=== PATIENT | female | born 1975 | race Caucasian/White ===

== ENCOUNTER 2019-11-26 01:30 | Emergency (ER) | payer BC ==
[~2019-11-26] VITALS: Ht 160 cm; Wt 117.9 kg
[~2019-11-26 01:30] MED LIST: ACETAMINOPHEN325 M1; AFRIN15 ML; AZITHROMYCIN500 MG; MUCINEX1200 MG; NORCO 5-325 TA1 EACH PO; PRENATAL FORMU1 EAC1 PO; PROAIR HFA8.5 GM; PROMETHAZINE-COD5 ML PO
[2019-11-26] MEDS ORDERED: PRILOSEC OTC20 MG PO (02:02)
[2019-11-26] MEDS ORDERED: FLUOXETINE HCL10 MG PO (02:02)
[2019-11-27] MEDS ORDERED: ONDANSETRON ODT8 MG PO (09:07)
[2019-11-27] MEDS ORDERED: FLUOXETINE HCL20 MG PO (09:28)
== END 2019-11-26 03:42 | disposition home or self-care (01) ==
LOC: ED 01:30
DX: R10.11 Right upper quadrant pain (principal); F41.9 Anxiety disorder, unspecified; K21.9 Gastro-esophageal reflux disease without esophagitis; F17.200 Nicotine dependence, unspecified, uncomplicated; Z88.8 Allergy status to other drugs, medicaments and biological substances; Z88.0 Allergy status to penicillin; Z88.6 Allergy status to analgesic agent; Z79.899 Other long term (current) drug therapy
CPT/HCPCS: 80053; 81001; 83690; 84703; 85025; 96361; 96374; 96375; 99284-25; J2405; J3010; J7030

== ENCOUNTER 2019-11-26 11:45 | Inpatient (IN) | payer BC, OTHER ==
[~2019-11-26] VITALS: Ht 160 cm; Wt 117.9 kg
[~2019-11-26 11:45] MED LIST changes: +FLUOXETINE HCL10 MG PO; +PRILOSEC OTC20 MG PO
--- NOTE | 2019-11-26 19:03 | NUR ---
1730: BOTH NARES SWABBED FOR COVID-19 SAMPLE PLACED IN THE INCYTE FRIDGE.
--- NOTE | 2019-11-26 19:35 | NUR ---
SHIFT REPORT FROM NURSE DELGADO. PT IN ROOM AMBULATING. NO NEEDS AT THIS TIME.
--- NOTE | 2019-11-26 21:39 | NUR ---
pt UP TO NURSES STATION REQUESTING INFORMATION ON TIME FOR SURGERY, INFORMED THAT WE WILL NOTIFY HER SOON WE KNOW A TIME. C/O PAIN IN ABDOMEN, 08/14. IN pt ROOM WITH MINH ALBERTS FOR MEDICATION ADMINISTRATION. VSS. WARM BLANKET PROVIDED. CALL LIGHT IN REACH.
--- NOTE | 2019-11-26 22:50 | NUR ---
PT WALKING IN GALAVIZ WITH IV POLE. IV FLOWING PER PLAN. PT IS HOLDING R ABDOMEN. REPORTS PAIN IS WORSE WITH MOVEMENT BUT TOLERABLE.
--- NOTE | 2019-11-27 00:25 | NUR ---
IN ROOM TO ADMINISTER ANCEF IV. PT IS SITTING AT EDGE OF BED SEWING. SCDS SET UP, WATER/TEA REMOVED FROM ROOM FOR NPO ORDERS. NO FURTHER NEEDS AT THIS TIME.
--- NOTE | 2019-11-27 01:48 | NUR ---
FLUID INTAKE TAKEN IN BEFORE 0001.
--- NOTE | 2019-11-27 02:00 | NUR ---
PT REPORTS PAIN 4/10 IN RIGHT SIDE. PRN MORPHINE AND ZOFRAN ADMINISTERED IN PREPARATION TO SLEEP. SCDS ON. NO FURTHER NEEDS AT THIS TIME
--- NOTE | 2019-11-27 05:15 | NUR ---
PT IN HALLWAY AMBULATING. WOULD LIKE TO SHOWER WITH DANETTE IN PREPARATION FOR SURGERY. PT SET UP FOR SHOWER. PRN TORADOL PROVIDED PRIOR TO SHOWER. ASSESSMENT COMPLETE. NO FURTHER NEEDS AT THIS TIME
--- NOTE | 2019-11-27 06:50 | NUR ---
pt BACK IN BED AFTER HIBICLENS SHOWER. IV FLUSHED WNL, IVF INFUSING ORDERED. pt DENIES PAIN. PERSONAL SUPPLIES AND CALL LIGHT IN REACH. NO REQUESTS AT THIS TIME.
[2019-11-27] MEDS ORDERED: ONDANSETRON ODT8 MG PO (09:07)
--- NOTE | 2019-11-27 09:10 | NUR ---
NEW IV 20G PLACED THIS AM, PT HAS BEEN UP TO THE BATHROOM VOIDED AND IS CURRENTLY SITTING AT THE SIDE OF THE BED. NO C/O'S AT THIS TIME.
[2019-11-27] MEDS ORDERED: FLUOXETINE HCL20 MG PO (09:28)
--- NOTE | 2019-11-27 09:29 | NUR ---
MED REC COMPLETE
--- NOTE | 2019-11-27 09:59 | NUR ---
PT AMBULATED IN THE GALAVIZ, TALKED WITH DR PAZ NO NEW ORDERS.
--- NOTE | 2019-11-27 10:26 | NUR ---
SPOKE WITH PATIENT IN ROOM. SHE IS PLANNING ON OR TODAY. SHE HAS NO BARRIERS KNOWN TO DISCHARGE HOME. SUPPORTIVE FAMILY. IN ROOM. CM WILL FOLLOW NEEDED.
--- NOTE | 2019-11-27 11:44 | NUR ---
CHECKED ON PT AND SHE APPEARS TO BE SLEEPING AT THIS TIME.
--- NOTE | 2019-11-27 12:26 | NUR ---
PT ALERT, ORIENTED AND SUPPORTED BY ALVERTO AT . ALL PTS' QUESTIONS THAT WERE ASKED WERE ANSWERED. PT KNOWS SHE IS HEADED TO OR FOR ROBERT MORGAN LATER TODAY. SHE ALSO PLANS ON BEING DC'D TODAY WELL. PT REQUESTED PRAYER, WILL FOLLOW NEEDED
--- NOTE | 2019-11-27 13:03 | NUR ---
PT MEDICATED WITH 8MG IVP ZOFRAN FOR NAUSEA AT THIS TIME.
--- NOTE | 2019-11-27 15:11 | NUR ---
1430: pt up to bathroom ready to go to or and then back to bed ancef and tordal given.
--- NOTE | 2019-11-27 17:36 | NUR ---
11/27/19 1736 Annamaria Estrada 1726 PATIENT ARRIVES TO PACU AWAKE OFF/ON, BUT VERY DROWSY. RESP EVEN AND UNLABORED, MASK AT 6 LITERS. 1730 PATIENT AWAKE BUT DROWSY. ANSWERS QUESTIONS APPROPRIATELY. RESP EVEN AND UNLABORED, MASK OFF. ROOM AIR SATS >92%. PATIENT COUGHS AND DEEP BREATHES APPROPRIATELY. DENIES PAIN OR NAUSEA. 1735 PATIENT ONLY COMPLAINS OF TONGUE PAIN, STATES "I FEEL LIKE I BIT MY TONGUE."
--- NOTE | 2019-11-27 18:06 | NUR ---
PT RETURNED FOR PACU DRINKING WATER AND WANTING FOOD AND TEA. PT SITTING AT THE EDGE OF THE BED AT18:06. PT HAS REACTIVE AIRWAY DISEASE AND AT TIMES HAS A HARD TIME TO CLEAR HER THROAT.
--- NOTE | 2019-11-27 18:41 | NUR ---
PT WORKING ON DINNER
--- NOTE | 2019-11-27 18:45 | NUR ---
TALKED WITH RT REGARDING NEBS VERSE INHALER TXS. RT WILL TALK WITH DR PAZ DUE TO COVID TEST IS NOT BACK AT THIS TIME.
--- NOTE | 2019-11-27 18:51 | NUR ---
VS Q 1 X2 COMPLETED SO FAR THIS SHIFT. PT EATTING DINNER AND NAUSEA FEELING BETTER AT THIS TIME. REMAINS AT THE BEDSIDE.
--- NOTE | 2019-11-27 19:15 | NUR ---
SHIFT REPORT RECEIVED FROM CAMILLEARDEBBIE FLORES AT BEDSIDE. PT AWAKE AND RESTING IN BED, AMBULATING IN ROOM AT TIMES. ALSO IN ROOM. LAP SITES X3 NOTED, SITE NEAR UMBILLICUS, SOMEWHAT LEAKY, 2X2 GAUZE PLACED. PT IN GOOD SPIRITS, DENIES NEEDS OR CONCERNS. CALL LIGHT IN REACH.
--- NOTE | 2019-11-27 20:20 | NUR ---
POST OP VSS, PT REPORTS 3/10 PAIN. PRN TYLENO, GIVEN PER PT REQUEST. LAP SITES X3 NOTED, MIAN DRAIN DRESSING INTACT, SOME SHADOWING. 30 MLS SEROSANGUINEOUS OUTPUT NOTED. PT AMBULATING IN ROOM INDEENDENTLY, FAMILY IN ROOM. DENIES NAUSEA AND SOB. EATING SNACKS IN ROOM, NO DISTRESS NOTED. CALL LIGHT IN REACH. NO FURTHER NEEDS.
--- NOTE | 2019-11-27 21:27 | NUR ---
PT IS UP WALKING IN THE GALAVIZ AT THIS TIME.
--- NOTE | 2019-11-27 21:35 | NUR ---
FINAL POST OP VS COMPLETE AND STABLE.
--- NOTE | 2019-11-27 23:23 | NUR ---
pt ambulating to rn station, requesting prn percocet. one tab cut in half per pt requet. fresh ice packs also provided, call light in reach.
--- NOTE | 2019-11-28 01:50 | NUR ---
ASSESSMENT COMPLETE, NO NEW CHANGES OR CONCERNS. VSS, PT REPORTS 4/10 PAIN. PER PT, PAIN WORSENS WITH COUGH. PRN PERCOCET GIVEN (SEE EMAR). PT KINDLY DECLINES MOTRIN, STATING, "IT UPSETS MY STOMACH". NO CHNAGES IN LAP OR MIAN SITE. BT ACTIVE, PT DENIES NAUSEA. NO FURTHER NEEDS, CALL LIGHT IN REACH.
--- NOTE | 2019-11-28 05:09 | NUR ---
VS AND I&O'S COMPLETE. MIAN EMPTIED, 65MLS FOR TOTAL OUTPUT OF SHIFT. FRESH ICE TEA PROVIDED, NO FURTHER NEEDS. CALL LIGHT IN REACH.
--- NOTE | 2019-11-28 05:30 | NUR ---
PT AWAKE AND TALKING WITH STAFF AT RN STATION AND AMBULATING IN HALLWAY.
--- NOTE | 2019-11-28 06:34 | NUR ---
pt REQUESTED A PRN PAIN PILL FOR 5/10 PAIN. BRACED WELL FOR A COUGH, STATED "THE COUGHING IS THE WORST PAIN" MEDICATION GIVEN (SEE MAR). NO FURTHER REQUESTS AT THIS TIME. CALL LIGHT WITHIN REACH.
--- NOTE | 2019-11-28 06:46 | PATH ---
[facility] [address] [facility] [place], [place] [address] Signed ORDERING PHYSICIAN: Jamaal HAYNES, Ever Fam PATIENT NAME: SRIKANTH LALA GENDER: F : 1975 SPECIMEN(S): No Source Given MOLECULAR PATHOLOGY RESULTS: SARS-CoV-2 Not Detected ADDITIONAL NOTES.: The [place] Fusion SARS-CoV-2 Assay is a multiplex real-time PCR (RT-PCR) in vitro diagnostic test intended for the qualitative detection of RNA from SARS-CoV-2 from individuals who meet COVID-19 clinical and/or epidemiological criteria. In general, SARS-CoV-2 RNA can be detected during the acute phase of infection. Positive results indicate the presence of SARS-CoV-2 RNA. Clinical correlation with patient history and other diagnostic information is necessary to determine patient infection status. Positive results do not rule out bacterial infection or co-infection with other viruses. Negative results do not preclude SARS-CoV-2 infection and should not be used as the sole basis for patient management decisions. Negative results must be combined with other clinical observations, patient history, and epidemiological information. The [place] Fusion SARS-CoV-2 Assay is not yet approved or cleared by the [place] FDA. When there are no FDA-approved or cleared tests available, and other criteria are met, FDA can make tests available under an emergency access mechanism called an Emergency Use Authorization (EUA). The EUA for this test is supported by the [place] of Health and Human Service's (HHS's) declaration that circumstances exist to justify the emergency use of in vitro diagnostics for the detection and/or diagnosis of the virus that causes COVID-19. This EUA will remain in effect for the duration of the COVID-19 declaration justifying emergency of IVDs, unless it is terminated or revoked by FDA, after which the test may no longer be used. The [place] Fusion SARS-CoV-2 Assay is for use only under EUA in US laboratories certified under the Clinical Laboratory Improvement Amendments of 1988 (CLIA) to perform high complexity tests. [facility] is certified under CLIA to perform high complexity PATIENT NAME: SRIKANTH LALA CONNIE PATHOLOGY DATE OF : [birth year] REPORT #: [id number] PHYSICIAN: JONNY AGUIRRE PCP: JAMIA VALENCIA PA-C REPORT IS CONFIDENTIAL AND NOT TO BE RELEASED WITHOUT AUTHORIZATION [address] [address] Signed clinical laboratory testing. PERFORMING LABORATORY.: Molecular testing was performed by [facility] [id number] [place] [id number] (Yard Coordinator: Mike Willams D.O.; CLIA#: [id number]) Diagnostician: System Interface Pathologist Electronically Signed 11/28/2019 Copies: ~ PATIENT NAME: SRIKANTH LALA CONNIE PATHOLOGY DATE OF : [birth year] REPORT #: [id number] PHYSICIAN: JONNY AGUIRRE PCP: JAMIA VALENCIA PA-C REPORT IS CONFIDENTIAL AND NOT TO BE RELEASED WITHOUT AUTHORIZATION
--- NOTE | 2019-11-28 07:36 | NUR ---
REPORT RECIEVED FROM MINH BLANCO.
--- NOTE | 2019-11-28 08:25 | NUR ---
MORNING ASSESSMENT DONE. PATIENT SITTING UP IN BED, QUILTING. PATIENT DENIES NAUSEA, ENDORSES 3/10 ABD PAIN AT REST. MIAN INTACT AND DRAINING SEROSANGUOUS DRAINAGE. PATIENT HAS BREAKFAST ORDERED. NEB TREATMENT STARTED.
[2019-11-28] MEDS ORDERED: OXYCODON-ACETA1 EAC2 PO (09:15)
[2019-11-28] MEDS ORDERED: IBUPROFEN600 MG PO (09:15)
[2019-11-28] MEDS ORDERED: ACETAMINOPHEN500 MG PO (09:15)
--- NOTE | 2019-11-28 09:48 | NUR ---
PATIENT DRESSED AND READY FOR D/C. IN ROOM. VITALS AND I&OS CHARTED. CALL LIGHT IN REACH. NO OTHER NEEDS AT THIS TIME
--- NOTE | 2019-11-28 09:52 | NUR ---
PATIENT GIVEN DISCHARGE PAPERS, VITALS ARE WNL. PATIENT PLANS TO AMBULATE OUT.
--- NOTE | 2019-11-28 14:49 | OR ---
[facility] [address] [place], [place] [address] Signed DATE OF OPERATION: 11/27/2019 SURGEON: Sowmya Paz MD DATE OF PROCEDURE: 11/26/2019 PREOPERATIVE DIAGNOSES: 1. Acute acalculous cholecystitis. 2. Morbid obesity (290 pounds). POSTOPERATIVE DIAGNOSES: 1. Acute acalculous cholecystitis. 2. Morbid obesity (290 pounds). 3. Gallbladder with profound cholesterolosis (strawberry gallbladder). PROCEDURES: 1. Laparoscopic cholecystectomy with intraoperative cholangiogram. 2. Surgeon-directed fluoroscopy. ANESTHESIA: General endotracheal, Lawrence Amando, CABLE FERRY OPERATOR and local 10 mL of 0.25% Marcaine with epinephrine. 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 She is well known to me from the past. She is a patient of SEYMOUR Menard. She called me urgently with severe right upper abdominal pain having been seen in the emergency room 12 hours prior yesterday. Evaluation showed her to have likely acute cholecystitis. Notably, she had episodic right upper abdominal symptoms suggestive of biliary disease for several months now. Indeed, she was evaluated by me in 2016 for probable biliary disease and a gallbladder ultrasound was normal and a CCK HIDA test showed no sign of ejection fraction problem. Nevertheless, she clinically has acute cholecystitis, was admitted given intravenous fluids, IV antibiotics, pain control and so forth. She is now to undergo cholecystectomy for probable acalculous cholecystitis. In the emergency room in the supervisor train operations hours yesterday, she underwent an ultrasound, which showed "sludge" in the gallbladder and an irregular surface, but no actual shadowing stones. She understands the risks of operation including but not limited to bleeding, infection, bile duct injury, need for open procedure and other unforeseen complications. She understands and she wished to proceed. Electronically Signed By: SOWMYA PAZ MD 11/28/19 1449 PATIENT NAME: SRIKANTH LALA OPERATIVE REPORT DATE OF : [birth year] REPORT #: [id number] PHYSICIAN: SOWMYA PAZ MD PCP: JAMIA VALENCIA PA-C REPORT IS CONFIDENTIAL AND NOT TO BE RELEASED WITHOUT AUTHORIZATION [facility] [address] [place], [place] [address] Signed FINDINGS: The gallbladder is markedly edematous and inflamed as expected. The liver had less fatty infiltration than I had expected. Cholesterolosis could be visualized through the gallbladder wall at the outset of the procedure. Due to her obesity, an additional trocar site was required in a fan retractor as well as an additional veterinary technician assistant to provide safe exposure. Cholecystectomy was performed ultimately. Cholangiogram was normal. The gallbladder once opened showed profound cholesterolosis (strawberry gallbladder). A drain was placed due to the extent of dissection, her obesity and so on. DESCRIPTION OF PROCEDURE: The patient was brought to the operating room, given a general endotracheal anesthetic. Preoperative antibiotic Ancef was given. Sequential compression device stockings used and heparin subcutaneously administered. The abdomen was prepared with a chlorhexidine solution and draped sterilely. An infraumbilical incision was made and using an open Frieda cannula technique, pneumoperitoneum was achieved to a level of 14 mmHg of carbon dioxide gas. Intraabdominal inspection showed no sign of ascites or carcinomatosis. The liver appeared less fatty infiltrated than I expected. Three additional trocars were placed in usual configuration in the subxiphoid, right midclavicular, and right anterior axilla line. The gallbladder was found to be quite markedly edematous and inflamed, but not gangrenous by any means. It was very distended as well. The gallbladder was elevated cephalad, but still half the gallbladder was obscured by omental fat. On that basis, a 5 mm mid abdominal trocar was placed and using a fan retractor better exposure could be provided. Using blunt and electrocautery dissection, the triangle of Calot was dissected free ultimately identifying well the cystic duct, which is of normal size. A clip was applied across the gallbladder cystic duct junction and a transverse choledochotomy made in the cystic duct. Egress of clear bile was noted. Using the [employer] type cholangiocatheter system, intraoperative cholangiography was undertaken showing free flow of contrast in biliary tree with prompt emptying into the duodenum. There was no sign of filling defect or other abnormality. The catheter was removed and the cystic duct was triply clipped and divided and the gallbladder dissected free in a retrograde fashion. Entry to the gallbladder was undertaken a few times as the gallbladder wall was rather thin despite its acute inflammation. There was no known spillage of stones or any thing like fat. Ultimately, the gallbladder was placed in an endobag and extracted through the infraumbilical port site, opened on the back table and found to have profound cholesterolosis, but no savanna stones and there were few chips of cholesterol material. Irrigation was undertaken in the subhepatic space. Electrocautery was used to secure hemostasis fully. When excess Electronically Signed By: SOWMYA PAZ MD 11/28/19 1449 PATIENT NAME: SRIKANTH LALA OPERATIVE REPORT DATE OF : [birth year] REPORT #: [id number] PHYSICIAN: SOWMYA PAZ MD PCP: JAMIA VALENCIA PA-C REPORT IS CONFIDENTIAL AND NOT TO BE RELEASED WITHOUT AUTHORIZATION [facility] [address] [facility] [place], [place] [address] Signed irrigation of fluid was suctioned free, reinspection of the liver bed showed no sign of bleeding or other problem. Nevertheless, given the extent of dissection, some Lexi hemostatic powder was insufflated to the subhepatic space. For similar reasons, a right-sided 7 mm flat Silvio drain was placed in subhepatic space and secured to the skin with nylon suture. The trocars were removed under direct visualization showing no sign of bleeding. The infraumbilical fascial incision was reapproximated with interrupted 0 Vicryl as well as a running 0 PDS suture. Irrigation was undertaken. A 10 mL of 0.25% Marcaine with epinephrine was injected locally. The skin was closed with interrupted 3-0 Vicryl. Steri-Strips were applied. The patient is somewhat slow to extubate at this time. The patient is anticipated to be extubated in the operating room to transfer to the recovery room in good condition. MD CYN Lima/JULIO /[id number] cc: SOBEIDA Paulson MD Copies: JAMIA VALENCIA PA-C ~ Electronically Signed By: SOWMYA PAZ MD 11/28/19 1449 PATIENT NAME: SRIKANTH LALA CONNIE OPERATIVE REPORT DATE OF : [birth year] REPORT #: [id number] PHYSICIAN: SOWMYA PAZ MD PCP: JAMIA VALENCIA PA-C REPORT IS CONFIDENTIAL AND NOT TO BE RELEASED WITHOUT AUTHORIZATION
--- NOTE | 2019-11-28 14:49 | DS ---
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 She has had recurrent bouts of epigastric and right upper abdominal pain for number of years. She had a thorough evaluation in 2016, which could not confirm biliary disease, though clinically it was suspicious and she was offered for cholecystectomy, which she declined. She was seen on an urgent walk-in basis at my office as she had been seen earlier in the ER by Dr. Hinton with severe 10/10 right subcostal pain. A gallbladder ultrasound was performed the morning after her evaluation in the emergency room, which showed sludge and irregular gallbladder wall. She was admitted for further evaluation and care after being found to have clinical findings consistent with acute cholecystitis. PERTINENT PHYSICAL EXAMINATION: GENERAL: Showed an obese white woman, who was quite uncomfortable. HEENT: Trachea is midline. CHEST: Clear. HEART: Regular without murmur. ABDOMEN: Obese, but soft. There is tenderness in right subcostal area. LABORATORY STUDIES: Showed a normal lipase. White count was 9.3. Liver enzymes are normal. Beta-hCG negative. HOSPITAL COURSE: She was given fluid resuscitation, IV antibiotics, and on November 27, 2019 underwent a laparoscopic cholecystectomy with intraoperative cholangiogram. She was found to have an acutely inflamed gallbladder. The gallbladder did show profound cholesterolosis (strawberry gallbladder). Cholangiogram was normal. She did have a fair amount of wheezing, likely related to her limited cigarette smoking and was monitored overnight. A drain was placed as well. The following morning, she was doing quite well. The drain was removed without problem showing no sign of bile or other problem. Her lungs have cleared up. She was discharged home in good condition much improved indeed. MEDICATIONS: Include ibuprofen 600 mg p.o. q.6 hours as needed for pain #30, Percocet 7.5/325 one p.o. q.6 hours as needed for pain #6, Tylenol 1 g p.o. q.6 hours as needed for pain. Electronically Signed By: SOWMYA PAZ MD 11/28/19 1449 PATIENT NAME: SRIKANTH LALA DISCHARGE SUMMARY DATE OF : [birth year] REPORT #: [id number] PHYSICIAN: SOWMYA PAZ MD PCP: JAMIA SCHULTE PA-C REPORT IS CONFIDENTIAL AND NOT TO BE RELEASED WITHOUT AUTHORIZATION [facility] [address] [place] [id number] Signed She will resume her usual medications of Prilosec 20 mg p.o. daily, fluoxetine 20 mg as needed for anxiety. DISCHARGE DIAGNOSES: 1. Acute acalculous cholecystitis, status post laparoscopic cholecystectomy with intraoperative cholangiogram. 2. Profound cholesterolosis. 3. Morbid obesity, 260 pounds. 4. Daily smoking 4 cigarettes. 5. Reactive airways disease perioperatively. 6. Gastroesophageal reflux symptoms. 7. Anxiety. FOLLOWUP PLAN: She is return to see me in approximately 4 weeks. She will keep Steri-Strips on and is permitted to shower in 48 hours. She should lift no more than 20 pounds for 2 weeks and is to return to work in about 3 weeks, sooner if she feels better since the discharge summary. Sowmya Paz MD JM/MODL /[id number] cc: Ever Schulte PA-C Copies: JAMIA SCHULTE PA-C ~ Electronically Signed By: SOWMYA PAZ MD 11/28/19 1449 PATIENT NAME: SRIKANTH LALA CONNIE DISCHARGE SUMMARY DATE OF : [birth year] REPORT #: [id number] PHYSICIAN: SOWMYA PAZ MD PCP: JAMIA SCHULTE PA-C REPORT IS CONFIDENTIAL AND NOT TO BE RELEASED WITHOUT AUTHORIZATION
--- NOTE | 2019-11-28 14:49 | HP ---
[facility] [address], [place] [address] Signed ADMISSION DATE: 11/26/2019 REASON FOR ADMISSION: Acute cholecystitis. 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 She is a patient of SEYMOUR Menard. She was seen on an urgent walk-in basis at my office for severe and unrelenting right subcostal, and right subscapular pain. She presented to the emergency room late last night, where she was evaluated by Dr. Hinton. She was given intravenous fentanyl, normal saline at that time and had diminishment of her symptoms. An ultrasound was organized for this morning. The ultrasound was performed at [facility], which showed sludge in the irregular gallbladder wall. She has had progressive and severe pain since last night, though she has had similar episodes over the past few weeks from time to time, which resolved on their own. I asked to see on an urgent walk-in basis in the office at the end of the day as she had unrelenting pain and not doing well. It is notable that she was evaluated by me fully in 2016, for what sounds like biliary colic symptoms, but her ultrasound was negative and a CCK HIDA test was normal as well. She did have minimal symptoms on CCK infusion at that time. The patient elected against cholecystectomy at that time due to this ambiguous evaluation, though I had recommended to proceed with cholecystectomy on the strong basis of clinical findings. She has no family history of biliary disease that she is aware of. PAST MEDICAL HISTORY: Notable for morbid obesity (260 pounds). She also has gastroesophageal reflux, which takes Prilosec and takes Prozac for stress. PAST SURGICAL HISTORY: Includes left hip incision and drainage in 1992 and tonsillectomy in 1979. Her last menstrual period was 11/20/2019. She does smoke 4 cigarettes a day. Does not drink alcohol. Electronically Signed By: SOWMYA PAZ MD 11/28/19 1449 PATIENT NAME: SRIKANTH LALA HISTORY AND PHYSICAL DATE OF : 73 REPORT #: [id number] PHYSICIAN: SOWMYA PAZ MD PCP: MARTA SCHULTE PA-C REPORT IS CONFIDENTIAL AND NOT TO BE RELEASED WITHOUT AUTHORIZATION [facility] [address] [place] [address] Signed SOCIAL HISTORY: She is . She has been once, but has no children. She works at [employer]. She lives in the [facility]. REVIEW OF SYSTEMS: She denies any shortness of breath or chest pain. She has had no dysphagia or dysuria. Denies any hematemesis or blood per rectum. PHYSICAL EXAMINATION: GENERAL: Pleasant white woman, who does look uncomfortable. VITAL SIGNS: Weight is 260, temperature 97.7, pulse 80, and blood pressure 151/92. NECK: Shows no thyromegaly or cervical adenopathy. Trachea is midline. CHEST: Clear. HEART: Regular. ABDOMEN: Obese, but soft. There is tenderness in right subcostal area. There is no mass. There is no ascites. EXTREMITIES: Show no clubbing, cyanosis, or edema. LABORATORY STUDIES: Performed this morning at approximately 2 a.m. in the emergency room, showed a potassium of 3.5, glucose of 103. Liver enzymes were normal. Lipase normal at 22. Beta HCG negative. White count was 9.3, hematocrit 39.3, and platelets were 330,000. I attempted to personally inspect the ultrasound that was performed this morning, however, I will not pull up from the computer, but report describes sludge, but no savanna stones. ASSESSMENT: The patient has clinical findings consistent with acute cholecystitis. She has had biliary colic symptoms for several years including accelerating symptoms recently. I have recommended direct admission to the hospital with fluid administration, IV antibiotics, parenteral pain medication, and a plan for cholecystectomy most likely tomorrow to be performed laparoscopically if possible. The risks of bleeding, infection, bile duct injury, need for open procedure, as well as failure to cure her symptoms was reviewed in detail. Most likely, this will be carried up to her problem, which likely includes acute cholecystitis. The unlikely possibility of common duct exploration was reviewed as well. Sowmya Paz MD Electronically Signed By: SOWMYA PAZ MD 11/28/19 1449 PATIENT NAME: SRIKANTH LALA HISTORY AND PHYSICAL DATE OF : 73 REPORT #: [id number] PHYSICIAN: SOWMYA PAZ MD PCP: MARTA SCHULTE PA-C REPORT IS CONFIDENTIAL AND NOT TO BE RELEASED WITHOUT AUTHORIZATION [address] [address] Signed CYN/JULIO /[id number] cc: Marta Schulte PA-C Copies: MARTA SCHULTE PA-C ~ Electronically Signed By: SOWMYA PAZ MD 11/28/19 1449 PATIENT NAME: SRIKANTH LLAA CONNIE HISTORY AND PHYSICAL DATE OF : 73 REPORT #: [id number] PHYSICIAN: SOWMYA PAZ MD PCP: MARTA SCHULTE PA-C REPORT IS CONFIDENTIAL AND NOT TO BE RELEASED WITHOUT AUTHORIZATION
--- NOTE | 2019-12-01 13:46 | PATH ---
[facility] [address] [place], [place] [address] Signed SPECIMEN(S): A GALLBLADDER SPECIMEN SOURCE: A. GALLBLADDER CLINICAL HISTORY: Preop Diagnosis: Acute cholecystitis. Postop Diagnosis: Lap. mary. FINAL PATHOLOGIC DIAGNOSIS: Gallbladder, cholecystectomy: - Cholesterolosis and chronic cholecystitis. DDF:cml:C2NR MICROSCOPIC EXAMINATION: Histologic sections of all submitted blocks are examined by light microscopy. These findings, together with the gross examination, support the pathologic diagnosis. GROSS DESCRIPTION: The specimen, labeled "RT," and designated on the requisition "gallbladder," is received in formalin and consists of Specimen: Previously opened gallbladder. Dimensions: 9.8 x 5.5 x 1.0 cm. Serosa: Yellow-soria to green-soria and smooth. Cystic Duct: Unobstructed. Calculi: Not grossly identified. Mucosa: Green-soria and velvety with yellow stippling. Wall thickness: 0.2 cm. Lymph node: No pericystic lymph nodes are grossly identified. Additional: None. Terrazzo Tile Maker sections are submitted in cassette (A1). AC (under the direct supervision of a pathologist) The Gross Description was prepared using a voice recognition system. The report was reviewed for accuracy; however, sound-alike word errors, addition and/or deletions may occur. If there is any question about this report, please contact Client Services. PERFORMING LABORATORY: The technical component was performed by [facility], [address] [place] [address] (Lay Out Technician: Monica Crowder MD; CLIA# [id number]). Professional interpretation was performed by PATIENT NAME: SRIKANTH LALA PATHOLOGY DATE OF : 73 REPORT #: [id number] PHYSICIAN: JONNY PATHOLOGY PCP: JAMIA VALENCIA PA-C REPORT IS CONFIDENTIAL AND NOT TO BE RELEASED WITHOUT AUTHORIZATION [facility] [address] [place], [place] [address] Signed [facility], [facility], [address] [facility] [address], [place] [address] (CLIA# [id number]). Diagnostician: Jaya Almazan DO Pathologist Electronically Signed 12/01/2019 Copies: ~ PATIENT NAME: SRIKANTH LALA CONNIE PATHOLOGY DATE OF : 73 REPORT #: [id number] PHYSICIAN: JONNY PATHOLOGY PCP: JAMIA VALENCIA PA-C REPORT IS CONFIDENTIAL AND NOT TO BE RELEASED WITHOUT AUTHORIZATION
== END 2019-11-28 09:50 | disposition home or self-care (01) | DRG 418 ==
LOC: EDSTATUS 11:45 → MS 16:49
PROVIDERS: ADMIT Surgery
PROC: BF101ZZ Fluoroscopy of Bile Ducts using Low Osmolar Contrast (ICD-10-PCS; 2019-11-27)
PROC: 0FT44ZZ Resection of Gallbladder, Percutaneous Endoscopic Approach (ICD-10-PCS; principal; 2019-11-27 11:45)
DX: K81.0 Acute cholecystitis (principal); Z68.42 Body mass index [BMI] 45.0-49.9, adult; Z20.828 Contact with and (suspected) exposure to other viral communicable diseases; E66.01 Morbid (severe) obesity due to excess calories; K21.9 Gastro-esophageal reflux disease without esophagitis; F41.9 Anxiety disorder, unspecified; J45.909 Unspecified asthma, uncomplicated; F17.210 Nicotine dependence, cigarettes, uncomplicated; K76.0 Fatty (change of) liver, not elsewhere classified; Z88.0 Allergy status to penicillin; Z88.8 Allergy status to other drugs, medicaments and biological substances; Z79.899 Other long term (current) drug therapy
CPT/HCPCS: 00790; 74300; 99406; C9803; J0690; J1100; J1644; J1885; J2001; J2250; J2270; J2405; J2704; J3010; J7121; Q9967; U0002

== ENCOUNTER 2021-10-14 07:55 | Day surgery (SDC) | payer BC ==
[~2021-10-14] VITALS: Ht 160 cm; Wt 103.6 kg
[~2021-10-14 07:55] MED LIST changes: +ACETAMINOPHEN500 MG PO; +FLUOXETINE HCL20 MG PO; +IBUPROFEN600 MG PO; +ONDANSETRON ODT8 MG PO; +OXYCODON-ACETA1 EAC2 PO; +PHENTERMINE H37.5 M1 PO
[2021-10-14] MEDS ORDERED: VITAMIN D250 MCG PO (08:14)
--- NOTE | 2021-10-14 08:45 | NUR ---
VO FROM ESTELLA FOSTER FOR VERSED 2MG. ORDER PUT IN.
--- NOTE | 2021-10-14 09:55 | NUR ---
10/14/21 0955 Sheets,Twila 0933 PT ARRIVED TO PACU ON 10L VIA MASK, AUDIBLE AIRWAY NOTED AND BAND SALVAGER AWARE. VSS. 0935 BREATHING TREATMENT STARTED AND HEAD MOVED TO SIDE, AUDIABLE AIRWAY CONTINUES. 0940 PT PILLOW MOVED AND JAW THRUST USED TO MAINTAIN AIRWAY. 0943 PT WAKES AND ORAL AIRWAY REMOVED. PT REORIENTED TO PACU AND DENIES PAIN. 0955 PT REPORTS CRAMPING PAIN 3/10 AND TOLERABLE AT THIS TIME.
--- NOTE | 2021-10-14 10:05 | NUR ---
1005-PATIENT BACK TO ROOM FROM PACU ON . RECEIVED REPORT FROM JULIAN WILKINSON. PATIENT IS AWAKE. RESP EVEN AND UNLABORED. RATES PAIN 3/10. DENIES NAUSEA. BRAXTON PAD HAS A SMALL AMOUNT OF DRAINAGE. PATINET DRINKING TEA SHE BROUGHT FROM HOME. PUDDING PROVIDED. PATIENT GETTING DRESSED. CALL LIGHT WITHIN REACH. AT BEDSIDE.
--- NOTE | 2021-10-14 11:11 | NUR ---
1055-PATIENT TOOK SELF TO THE RESTROOM. PATEINT STATES SHE VOIDED ADEQUATE AMOUNT. PATIENT ALSO STATES BRAXTON PAD HAD SMALL AMOUNT OF RED DRAINAGE. 1100-WENT OVER DISCHARGE INSTRUCTIONS WITH PATINET AND . ALL QUESTION ANSWERED. PATIENT RATES PAIN 2/10. PATIENT AMBULATES TO WHEELCHAIR. GAIT STEADY. WHEELCHAIR RIDE TO FRONT OF HOSPITAL WHERE WAS WAITING.
--- NOTE | 2021-10-16 09:22 | OR ---
[facility] [address] [place], [place] [address] Signed DATE OF OPERATION: 10/14/2021 SURGEON: Franco Dillon MD PREOPERATIVE DIAGNOSIS: Postmenopausal bleeding. POSTOPERATIVE DIAGNOSIS: Postmenopausal bleeding pending pathology. PROCEDURE: Hysteroscopy, resection of polyps, D and C. ANESTHESIA: LMA ESTIMATED BLOOD LOSS: Minimal. DRAINS: None. INDICATIONS AND FINDINGS: The patient is a 46-year-old female, who has had some recent abnormal bleeding. She has not been on HRT. Ultrasound revealed some thickening of the endometrium. Endometrial biopsy in the office was scant, but benign. Because of her risk factors, hysteroscopy was recommended. At the time of surgery, exam under anesthesia was normal other than for her morbid obesity. The uterus sounded to 9 cm. There were several polyps in the fundus of the uterus. DESCRIPTION OF PROCEDURE: The patient was prepped and draped in the dorsal lithotomy position. The Fleming-Neck speculum was placed into the posterior cul-de-sac and the anterior lip of the cervix was visualized and grasped with a single-tooth tenaculum. The cavity was sounded to 9 cm. The endocervical canal was then easily dilated to a #8 dilator. The MyoSure device was then placed. The cavity was evaluated and the MyoSure Lite was then introduced and the polyps of the fundus were resected. Following this, the hysteroscopy portion was complete and D and C was done with a small curette with a small amount of tissue found. The procedure was terminated. The tenaculum was removed. There was no evidence of any ongoing bleeding. All sponge and needle counts were correct. She was taken to the Electronically Signed By: FRANCO DILLON MD 10/16/21 0922 PATIENT NAME: SRIKANTH LALA OPERATIVE REPORT DATE OF : 73 REPORT #: [id number] PHYSICIAN: FRANCO DILLON MD PCP: MARTA SCHULTE PA-C REPORT IS CONFIDENTIAL AND NOT TO BE RELEASED WITHOUT AUTHORIZATION [facility] [address] [place] [address] Signed recovery room in good condition. Franco Dillon MD PJW/MODL /[id number] cc: Marta Schulte PA-C Copies: MARTA SCHULTE PA-C ~ Electronically Signed By: FRANCO DILLON MD 10/16/21 0922 PATIENT NAME: SRIKANTH LALA OPERATIVE REPORT DATE OF : 73 REPORT #: [id number] PHYSICIAN: FRANCO DILLON MD PCP: MARTA SCHULTE PA-C REPORT IS CONFIDENTIAL AND NOT TO BE RELEASED WITHOUT AUTHORIZATION
--- NOTE | 2021-10-17 14:02 | PATH ---
[facility] [address] [place], [place] [address] Signed SPECIMEN(S): A EMC AND POLYPS SPECIMEN SOURCE: A. EMC AND POLYPS CLINICAL HISTORY: Hysteroscopy, DC. Postmenopausal bleeding. FINAL PATHOLOGIC DIAGNOSIS: Endometrium and endometrial polyps, curettage: - Fragments of benign endometrial polyp(s). - Favor background proliferative endometrium, see Comment. - Negative for atypical hyperplasia or malignancy. COMMENT: Given the fragmented nature of the specimen, it is difficult to definitively delineate background endometrium from polyp. NAL:cml:C2NR MICROSCOPIC EXAMINATION: Histologic sections of all submitted blocks are examined by light microscopy. These findings, together with the gross examination, support the pathologic diagnosis. GROSS DESCRIPTION: The specimen, labeled "RT, A," and designated on the requisition "EMC and polyps," is received in formalin and consists of soria-pink soft tissue fragments with mucus and clot material measuring 3.8 x 2.7 x 0.5 cm in aggregate. Specimen is filtered and entirely submitted in cassettes (A1-A2). AT (under the direct supervision of a pathologist) The Gross Description was prepared using a voice recognition system. The report was reviewed for accuracy; however, sound-alike word errors, addition and/or deletions may occur. If there is any question about this report, please contact Client Services. PERFORMING LABORATORY: The technical component was performed by [facility], [address] [place] [address] (CLIA# [id number]). [facility], [address] [facility] [address] [place] [id number] (CLIA# PATIENT NAME: SRIKANTH LALA PATHOLOGY DATE OF : 73 REPORT #: [id number] PHYSICIAN: JONNY PATHOLOGY PCP: JAMIA VALENCIA PA-C REPORT IS CONFIDENTIAL AND NOT TO BE RELEASED WITHOUT AUTHORIZATION [facility] [address] [place] [address] Signed [id number]). Diagnostician: Sanjuana Hayes MD Pathologist Electronically Signed 10/17/2021 Copies: ~ PATIENT NAME: SRIKANTH LALA PATHOLOGY DATE OF : 73 REPORT #: [id number] PHYSICIAN: JONNY PATHOLOGY PCP: JAMIA VALENCIA PA-C REPORT IS CONFIDENTIAL AND NOT TO BE RELEASED WITHOUT AUTHORIZATION
== END 2021-10-14 11:05 | disposition home or self-care (01) ==
LOC: DS 07:55
PROVIDERS: ATTEND Obstetrics & Gynecology
PROC: 0UDB8ZZ Extraction of Endometrium, Via Natural or Artificial Opening Endoscopic (ICD-10-PCS; 2021-10-14)
PROC: 0UBC8ZX Excision of Cervix, Via Natural or Artificial Opening Endoscopic, Diagnostic (ICD-10-PCS; principal; 2021-10-14 10:00)
DX: N84.0 Polyp of corpus uteri (principal); Z88.6 Allergy status to analgesic agent; Z88.1 Allergy status to other antibiotic agents; Z88.0 Allergy status to penicillin; Z88.8 Allergy status to other drugs, medicaments and biological substances
CPT/HCPCS: 84703; J1100; J1644; J1885; J2001; J2250; J2405; J2704; J2765; J3010; J7121